=== PATIENT | male | born 1945 | race Caucasian/White ===

== ENCOUNTER 2017-06-30 12:59 | Emergency (ER) | payer MEDICAID ==
[~2017-06-30] VITALS: Ht 175.3 cm; Wt 104.5 kg
[~2017-06-30 12:59] MED LIST: ASPI81TA82 PO; BENI40TA30 PO; MECL-62 PO; NIAC250C6 PO; POLY10O OU
[2017-06-30 13:00] VITALS: BP 156/89; PULSE 92; RESP 15; TEMP 98.2; O2SAT 98
--- NOTE | 2017-06-30 13:39 | PD ---
Physical Exam Date Seen by Provider: Jun 30, 2017 Time Seen by Provider: 13:39 Narrative 72-year-old male presents the emergency department with ongoing penile discharge, and reports of a "lump" in the shaft of his penis. He states it's been there approximately 2 weeks. He states sexual relations with a woman approximately 3 weeks ago with possible vaginitis at that time. Patient has some mild dysuria, but denies abdominal pain, flank pain, or other symptoms. The "lump in his penis was a little larger but now has gone down somewhat". Patient has no allergies to medications, but is allergic to latex. Data Data Last Documented VS Vital Signs Date Time Temp Pulse Resp B/P (MAP) Pulse Ox O2 Delivery O2 Flow Rate FiO2 06/30/17 13:00 98.2 92 15 156/89 (111) 98 Orders Orders Urinalysis - C+S If Indicated (06/30/17 13:38) Gc And Chlamydia Pcr (06/30/17 13:38) MDM Medical Record Reviewed: Yes Supervised Visit with JORGE: Yes Differential Diagnosis STD. Penile discharge. Possible penile abscess. Narrative Course Urinalysis was collected, as well as GC chlamydia. Patient is awaiting med bed placement. Condition: Stable Aram Acuña Jun 30, 2017 13:39
[2017-06-30 14:15] LABS: BACTERIA, URINE OCC /hpf; BLOOD, URINE SMALL (NEG); GLUCOSE,URINE NEG (NEG); KETONE, URINE NEG (NEG); MUCUS URINE FEW /lpf (OCC); NITRITE,URINE NEG (NEG); URINE COLOR YELLOW (YELLW/STRAW)
[2017-06-30] MEDS ORDERED: LIDOCAINE HCL 1% PF 30 ML VIAL XX ONE (14:15)
[2017-06-30 14:16] LABS: COMMENT (UR) CULTURE INDICATED; CULTURE IF INDICATED CULTURE INDICATED
[2017-06-30] MEDS ORDERED: DOXY100C PO (14:16)
[2017-06-30] MEDS ORDERED: HYDR12.57 PO (14:21)
--- NOTE | 2017-06-30 15:39 | PD ---
HPI Chief Complaint: Complaint Time Seen by Provider: 13:59 Travel History International Travel<30 days: No Contact w/Intl Traveler<30days: No Traveled to known affect area: No History of Present Illness HPI This patient complains of urethral discharge. Duration 2 weeks. He notes having unprotected sex with a woman who had vaginal discharge. He also noticed a lump on the underside of his penis. He denies fever. Is not having any acute pain. No trouble urinating. Symptoms severity is moderate. PFSH Past Medical History Cancer: Yes (PROSTATE) Diabetes: Yes (pre-diabetic) Hypertension: Yes Respiratory: Yes (PLEURISY) Past Surgical History Tonsillectomy: Yes Social History Alcohol Use: Yes (daily) Tobacco Use: No Substance Use: No Allergies-Medications (Allergen,Severity, Reaction): Coded Allergies: latex (Unverified Allergy, Severe, Rash, 06/30/17) Reported Meds & Prescriptions Reported Meds & Active Scripts Active Hydrochlorothiazide 12.5 Mg Cap 12.5 Mg PO DAILY Doxycycline Hyclate 100 Mg Cap 100 Mg PO BID Review of Systems General / Constitutional: No: Fever HENT: No: Headaches Cardiovascular: No: Chest Pain or Discomfort Respiratory: No: Cough Physical Exam Narrative GASTROINTESTINAL: Abdomen soft, non-tender, nondistended. Positive bowel sounds. No hepato-splenomegaly, or palpable masses. No guarding. SKIN: Focused skin assessment reveals no rash or ulcers. Skin is warm and dry. Palpation shows no induration or nodules. : There is a nodule on the underside of the penile shaft. There is no fluctuance or tenderness there. No erythema of the shaft. No vesicular lesions He has some visible yellow urethral discharge GC and Chlamydia PCR is pending Data Data Last Documented VS Vital Signs Date Time Temp Pulse Resp B/P (MAP) Pulse Ox O2 Delivery O2 Flow Rate FiO2 06/30/17 13:00 98.2 92 15 156/89 (111) 98 Orders Orders Urinalysis - C+S If Indicated (06/30/17 13:38) Gc And Chlamydia Pcr (06/30/17 13:38) Ceftriaxone Inj (Rocephin Inj) (06/30/17 14:15) Lidocaine Pf 1% Inj (Xylocaine-Mpf 1% In (06/30/17 14:15) Urine Culture (06/30/17 13:40) Labs Laboratory Tests Test 06/30/17 13:40 Urine Color YELLOW Urine Turbidity HAZY Urine pH 5.0 Urine Specific [place] 1.026 Urine Protein 30 mg/dL Urine Glucose (UA) NEG mg/dL Urine Ketones NEG mg/dL Urine Occult Blood SMALL Urine Nitrite NEG Urine Bilirubin NEG Urine Urobilinogen LESS THAN 2.0 MG/DL Urine Leukocyte Esterase LARGE Urine RBC 11 /hpf Urine WBC /hpf Urine WBC Clumps FEW Urine Bacteria OCC /hpf Urine Mucus FEW /lpf Microscopic Urinalysis Comment CULTURE INDICATED MDM Medical Decision Making Medical Screen Exam Complete: Yes Emergency Medical Condition: Yes Medical Record Reviewed: Yes Differential Diagnosis Urethritis, UTI, cellulitis Narrative Course I have reviewed the patient's electronic medical record. Urinalysis shows pyuria as expected as he has obvious clinical urethritis Urine PCR is being run for GC and Chlamydia I gave him injection of Rocephin and 1 week of doxycycline Stable for outpatient follow-up Follow-up with primary care or health department Diagnosis Primary Impression: Urethritis Patient Instructions: General Instructions Departure Forms: Tests/Procedures Additional Instructions: The patient was advised to follow up with their physician and return if they worsen. Med/Other Pt SpecificInfo: Prescription(s) given Scripts Hydrochlorothiazide (Hydrochlorothiazide) 12.5 Mg Cap 12.5 MG PO DAILY, #30 CAP 0 Refills Prov: Cristi Conway MD 06/30/17 Doxycycline Hyclate (Doxycycline Hyclate) 100 Mg Cap 100 MG PO BID for Infection, #14 CAP 0 Refills Prov: Cristi Conway MD 06/30/17 Disposition: 01 DISCHARGE HOME Condition: Stable Cristi Conway MD Jun 30, 2017 15:39
[2017-06-30 16:27] LABS: CHLAMYDIA PCR NOT DETECTED (NOT DETECT); NEISSERIA PCR DETECTED (NOT DETECT)
== END 2017-06-30 16:00 | disposition home or self-care (01) ==
LOC: NEPD 12:59
DX: N34.2 Other urethritis (principal)
CPT/HCPCS: 81001; 87086; 87491; 87591; 96372; 99284; J0696